=== PATIENT | male | born 1970 | race Caucasian/White ===

== ENCOUNTER 2017-02-23 08:21 | Emergency (ER) | payer SELFPAY ==
[~2017-02-23] VITALS: Ht 162.6 cm; Wt 50.0 kg
[2017-02-23 15:37] VITALS: BP 134/84
== END 2017-02-23 15:50 | disposition home or self-care (01) ==
LOC: ED 08:21
DX: R34 Anuria and oliguria (principal); E86.9 Volume depletion, unspecified
CPT/HCPCS: J7030